=== PATIENT | female | born 1960 | race Caucasian/White ===

== ENCOUNTER 2020-09-01 19:55 | Inpatient (IN) | payer MEDICARE ==
[~2020-09-01] VITALS: Ht 154.9 cm; Wt 51.2 kg
--- NOTE | 2020-09-01 21:40 | NUR ---
Patient admitted via EMS from [place] [facility]. Alert and oriented x 4. Pleasant. Reports 7/10 pressure lower abdomin and no void since 1200 today. See assessment. Oriented to room and call light. Home meds all reviewed with patient. Patient scooted from gurney to bed. CUSTOMER RETENTION REPRESENTATIVE then assisted patient ambulatory to bathroom but patient unable to void. Rests back in bed. Juliana into see patient and new orders for indwelling reece received. Reviewed procedure with patient and 16 swiss reece 5 cc balloon inserted via sterile technique. 10mls inserted into balloon. Immediate return of 450mls clear yellow urine with 1 speck of blood.
[2020-09-01 21:45] VITALS: BP 132/77
--- NOTE | 2020-09-01 22:00 | NUR ---
Badder scan done due to patient unable to void and reads >736 mls.
[2020-09-01] MEDS ORDERED: SIMVASTATIN40 M1 PO (22:05)
[2020-09-01] MEDS ORDERED: INSULIN R (N100 U/ML SQ (22:05)
[2020-09-01] MEDS ORDERED: GLUCOPHAGE XR500 M2 PO (22:07)
[2020-09-01] MEDS ORDERED: LISINOPRIL10 MG PO (22:09)
[2020-09-01] MEDS ORDERED: AMITRIPTYLINE H50 M1 PO ×3 (22:11→22:14)
[2020-09-01] MEDS ORDERED: TUMS REGULAR S500 MG PO (22:16)
[2020-09-01] MEDS ORDERED: NATURAL IRON65 MG PO (22:19)
[2020-09-01] MEDS ORDERED: SYNTHROID0.15 MG PO (22:20)
[2020-09-01] MEDS ORDERED: AMBIEN10 MG PO (22:21)
[2020-09-01] MEDS ORDERED: HUMULIN R U-100 U/ML SQ (22:26)
[2020-09-01] MEDS ORDERED: ACEROLA C500 MG PO (22:27)
[2020-09-01] MEDS ORDERED: NORCO 325 MG-7.1 TA1 PO (22:30)
[2020-09-01 23:23] LABS: URINE APPEARANCE CLOUDY; URINE BILIRUBIN 1+ (NEGATIVE); URINE BLOOD NEGATIVE (NEGATIVE); URINE COLOR YELLOW; URINE GLUCOSE 50 mg/dL mg/dL (NEGATIVE); URINE KETONE NEGATIVE (NEGATIVE); URINE NITRATE NEGATIVE (NEGATIVE); URINE PROTEIN(semi-quant) TRACE mg/dL (NEGATIVE); URINE UROBILINOGEN NORMAL (NORMAL)
[2020-09-01 23:24] LABS: URINE LEUKOCYTE ESTERASE TRACE (NEGATIVE); URINE WBC 0-1 /hpf (0-3)
--- NOTE | 2020-09-02 02:00 | NUR ---
Patient awakened for vitals and 850mls urine emptied from Slater catheter. States she's been sleeping and abdominal pressure is gone. "Feel much better".
[2020-09-02 02:06] VITALS: BP 112/73
--- NOTE | 2020-09-02 05:31 | NUR ---
Patient rests on left side with eyes closed. Respirations with ease.
[2020-09-02 05:52] VITALS: BP 122/72
--- NOTE | 2020-09-02 07:15 | NUR ---
REPORT RECEIVED FROM LIANNA CHAO.
[2020-09-02 07:55] LABS: BASO # 0.04 (0.02-0.10); EOS % 6.4 % (1.0-5.0); HEMATOCRIT 35.6 % (37.0-47.0); HEMOGLOBIN 11.4 g/dL (12.5-16.0); LYMPH# 2.65 (1.50-4.00); MEAN CELL VOLUME 101 fl (78-100); MEAN CORPUSCULAR HEMOGLOBIN 32 pg (27-31); MEAN CORPUSCULAR HGB CONC 32 g/dL (33-37); MEAN PLATELET VOLUME 8.9 fl (7.4-10.4); MONO # 0.61 (0.20-0.80); NEU # 4.03 (1.40-6.50); PLATELET COUNT 291 K/mm3 (130-400); RED BLOOD COUNT 3.54 M/mm3 (4.10-5.30); RED CELL DISTRIBUTION WIDTH 12.3 % (11.5-14.5); WHITE BLOOD COUNT 7.9 K/mm3 (4.8-10.8)
--- NOTE | 2020-09-02 07:55 | NUR ---
SITTING UP IN BED. NS INFUSING TO INTACT SITE AT RT FOREARM AT 125ML/HR. ALSO HAS INT INTACT TO LT AC; FLUSHES APPROPRIATELY. REPORTS PAIN ACROSS LOW ABD AND ALSO TO RT LOW BACK, EXTENDING NEAR THE RT FLANK REGION. ABD DISTENDED- DOES NOT FEEL BLOATED. BOWEL SOUNDS ACTIVE X4 QUADS. MONTOYA CATH INTACT TO DD. TELE INTACT. CALL LIGHT IN REACH.
[2020-09-02 08:06] LABS: ALBUMIN 3.2 g/dL (3.5-5.0); POTASSIUM 4.9 mmol/L (3.5-5.1)
[2020-09-02 08:07] LABS: CALCIUM 7.8 mg/dL (8.3-10.5)
[2020-09-02 08:08] LABS: TOTAL PROTEIN 5.5 g/dL (6.4-8.3)
[2020-09-02 08:10] LABS: TOTAL BILIRUBIN 0.2 mg/dL (0.2-1.2)
--- NOTE | 2020-09-02 10:01 | NUR ---
VERBAL ORDER FROM KT MCNULTY TO DISCONTINUE TELEMETRY.
[2020-09-02 10:10] VITALS: BP 114/70
--- NOTE | 2020-09-02 11:51 | NUR ---
KT MCNULTY NOTIFIED OF FSBS 515. ORDERS TO GIVE INSULIN PER SLIDING SCALE. WILL RECHECK FSBS TWO HOURS AFTER EATING.
[2020-09-02 14:12] VITALS: BP 126/77
--- NOTE | 2020-09-02 15:13 | NUR ---
F/U FSBS 317. J.KACEY GUERRAN NOTIFIED. ORDERS TO GIVE INSULIN PER SLIDING SCALE X1 DOSE NOW.
--- NOTE | 2020-09-02 15:30 | NUR ---
TWINE REELING MACHINE OPERATOR REPORTS PATIENT PASSED TRACE AMOUNT BM AND REMNANTS OF DULCOLAX SUPPOSITORY.
[2020-09-02 18:14] VITALS: BP 122/77
--- NOTE | 2020-09-02 18:50 | NUR ---
REPORT PROVIDED TO ELIZABETH PALUMBO.
--- NOTE | 2020-09-02 19:17 | NUR ---
Report received from Cristina CHAO. Patient requesting pain medication at shift change. This nurse to room. Patient sitting in recliner. at chairside. This nurse introduces self, patient immediately states "I am hurting I have been hurting a long time." This nurse advises that I have her pain pills. Rates pain 10/10 to lower abdomen, radiating around to her back. [employer] 1 tab taken at this time. "burning and throbbing" Discussed with patient constipation and relation to narcotics. Offered and refused prune juice. Will received Miralax and Sennokot tonight. IVF infusing NS at 125 ML/HR. Site patent to RFA. Abdomen rounded, firm with bowel sounds hypoactive. Patient states abdomen is the same as always. Reports passing gas and had medium BM yesterday. No pedal edema. Reviewed medication list. When got to Morphine patient states "I feel like thats what I need now, it really hurts". Advised to try and see if [employer] works first. Agreeable to plan. Denies further questions, wants or needs at this time.
--- NOTE | 2020-09-02 19:50 | NUR ---
Rings call light and states pain still /. Morphine 4 MG given SIVP at this time. INT patent to RFA. Requests to have Alexandrea and Lisa at 2200.
[2020-09-02 22:25] VITALS: BP 129/77
--- NOTE | 2020-09-03 01:06 | NUR ---
Patient is resting quietly with eyes closed. No signs of pain or distress. New bag of IVF hung. NS to run at 125 ML/HR. Site patent to [facility]. Bed alarm on. Call light in reach.
[2020-09-03 01:46] VITALS: BP 119/75; BP 119/758
--- NOTE | 2020-09-03 01:49 | NUR ---
Rings call light and requests analgesic for pain 12/07, to lower abdomen and around to back. Morphine 4 MG given SIVP.
--- NOTE | 2020-09-03 05:10 | NUR ---
Rings call light and requests analgesic. Prefers the Morphine vs [place]. 4 MG given SIVP along with scheduled early AM PO medications. Rates pain 10/10 to lower abdomen, radiating around to her back. States she did get some rest. Has not had a BM. Reports passing gas. Denies further wants or needs.
[2020-09-03 05:49] VITALS: BP 137/83
--- NOTE | 2020-09-03 07:00 | NUR ---
Report received from DEEPALI Paz.
--- NOTE | 2020-09-03 07:12 | NUR ---
Report to Nubia CHAO.
--- NOTE | 2020-09-03 08:15 | NUR ---
Pt sleeping in bed when entering the room but arouses quickly. PT is A&Ox4. Pt denies pain at this time. IV does not show any signs of complications. No concerns at this time.
--- NOTE | 2020-09-03 09:40 | NUR ---
Pt requesting Morphine 4mg/ml for 8 out of 10 pain.
[2020-09-03 10:04] VITALS: BP 122/76
--- NOTE | 2020-09-03 11:25 | NUR ---
Pt requesting Morphine for 8 out of 10 pain, 1ml morphine given at 0947 and will not be able to be given again until 1147. Nurse notified pt about this and reeducated her about the effects mophine has on bowel movements. Pt reports no bowel movements today Laxmi August APRN notified and gave orders to do a fleet enema. Pt requests this be done after lunch.
[2020-09-03 14:39] LABS: BASO # 0.04 (0.02-0.10); EOS # 0.56 (0.04-0.40); HEMATOCRIT 38.8 % (37.0-47.0); HEMOGLOBIN 12.3 g/dL (12.5-16.0); LYMPH# 3.25 (1.50-4.00); MEAN CELL VOLUME 102 fl (78-100); MEAN CORPUSCULAR HEMOGLOBIN 32 pg (27-31); MEAN CORPUSCULAR HGB CONC 32 g/dL (33-37); MEAN PLATELET VOLUME 8.9 fl (7.4-10.4); MONO # 0.65 (0.20-0.80); NEU # 6.77 (1.40-6.50); PLATELET COUNT 326 K/mm3 (130-400); RED BLOOD COUNT 3.82 M/mm3 (4.10-5.30); RED CELL DISTRIBUTION WIDTH 12.3 % (11.5-14.5); WHITE BLOOD COUNT 11.3 K/mm3 (4.8-10.8)
[2020-09-03 14:46] VITALS: BP 119/75
[2020-09-03 14:58] LABS: ALBUMIN 3.7 g/dL (3.5-5.0)
[2020-09-03 14:59] LABS: POTASSIUM 5.1 mmol/L (3.5-5.1)
[2020-09-03 15:00] LABS: CALCIUM 8.6 mg/dL (8.3-10.5)
[2020-09-03 15:01] LABS: TOTAL PROTEIN 6.4 g/dL (6.4-8.3)
[2020-09-03 15:19] LABS: TOTAL BILIRUBIN 0.1 mg/dL (0.2-1.2)
--- NOTE | 2020-09-03 15:30 | NUR ---
Soap Cherry Enema ordered and completed with results. Will continue to monitor.
[2020-09-03 16:40] LABS: URINE APPEARANCE CLOUDY; URINE BILIRUBIN NEGATIVE (NEGATIVE); URINE BLOOD 250 ery/uL (NEGATIVE); URINE COLOR LT YELLOW; URINE KETONE NEGATIVE (NEGATIVE); URINE LEUKOCYTE ESTERASE 2+ (NEGATIVE); URINE NITRATE POSITIVE (NEGATIVE); URINE PROTEIN(semi-quant) 1+ mg/dL (NEGATIVE); URINE UROBILINOGEN NORMAL (NORMAL); URINE WBC >50 /hpf (0-3)
[2020-09-03 18:10] VITALS: BP 126/81
--- NOTE | 2020-09-03 20:00 | NUR ---
Report received from Nubia CHAO. Patient up in recliner. IVF infusing at 75 ML/HR. Site patent to RFA. A/O x4. Rates pain 3/10 to lower abdomen/back. Assessment completed. BS active. No edema. Denies wants or needs at this time.
--- NOTE | 2020-09-03 20:15 | NUR ---
Agreeable to go for a walk with 411 DIRECTORY ASSISTANCE OPERATOR. Ambulated about 50 feet, slow steady gait with 1 rest period in between. Tolerated well. Assisted to bed. Reece Cath removed, ballon intact. 200 ML output in reece cath. Accu-check 163. Snack provided per request, states she "didn't eat much supper".
--- NOTE | 2020-09-03 21:40 | NUR ---
Up to BR. Voids. No collection container in toilet but patient states she voided quite a bit and feels like she emptied her bladder. Agreeable to another walk. Ambualted in casiano with ASPHALT ENGINEER and walker to hallway sink and back. Tolerated well. States pain to lower abdomen is coming back. Rates 8/10. "burning to abdomen and "throbbing" to back area. Offered PO analgesic and patient declines, states she wants the Morphine. "Maybe tomorrow, I can get off of it.". I am not use to being in pain". Patient has been educated about the correlation between narcotic medications and constipation. Verbalizes understanding. Morphine 4 MG given SIVP. IVF continue at 75 ML/Hr.
[2020-09-03 22:00] VITALS: BP 135/77
--- NOTE | 2020-09-04 00:12 | NUR ---
Awakens and calls for analgesic for pain to abdomen and back 12/07. MSO4 4 MG given SIVP. Up to BR with SBA and walker.
[2020-09-04 02:21] VITALS: BP 152/86
--- NOTE | 2020-09-04 04:45 | NUR ---
Calls and requests Morphine for pain to abdomen and back. 4 MG SIVP given. Early AM medications taken at this time as well.
[2020-09-04 06:04] VITALS: BP 152/77
--- NOTE | 2020-09-04 07:30 | NUR ---
Report to Korina CHAO.
[2020-09-04] MEDS ORDERED: MS CONTIN 115 MG/TAB PO (08:31)
[2020-09-04] MEDS ORDERED: GLUCOPHAGE PO (08:32)
[2020-09-04] MEDS ORDERED: HUMULIN 70/30 KW3 ML SQ (08:38)
[2020-09-04 10:01] VITALS: BP 126/76
[2020-09-04 13:56] VITALS: BP 118/73
--- NOTE | 2020-09-04 17:10 | NUR ---
Prelim urine culture results given to Dr. Waite.
[2020-09-04 17:50] VITALS: BP 123/74
[2020-09-04 22:20] VITALS: BP 145/89
[2020-09-05 02:16] VITALS: BP 148/85
--- NOTE | 2020-09-05 02:30 | NUR ---
pt ambulated in hallway 150 ft and then sat on the toilet for about 10 minutes. Voided without difficulty. No stool.
--- NOTE | 2020-09-05 03:08 | NUR ---
PT APPEARS TO BE SLEEPING. AWAKENS EASILY. NO FURTHER BURNING SENSATION.
[2020-09-05 06:24] VITALS: BP 124/77
[2020-09-05 07:47] LABS: BASO # 0.03 (0.02-0.10); EOS # 0.08 (0.04-0.40); EOS % 2.3 % (1.0-5.0); HEMATOCRIT 33.4 % (37.0-47.0); HEMOGLOBIN 10.9 g/dL (12.5-16.0); LYMPH# 1.85 (1.50-4.00); MEAN CELL VOLUME 100 fl (78-100); MEAN CORPUSCULAR HEMOGLOBIN 33 pg (27-31); MEAN CORPUSCULAR HGB CONC 33 g/dL (33-37); MEAN PLATELET VOLUME 9.6 fl (7.4-10.4); MONO # 0.23 (0.20-0.80); NEU # 1.31 (1.40-6.50); PLATELET COUNT 298 K/mm3 (130-400); RED BLOOD COUNT 3.35 M/mm3 (4.10-5.30); RED CELL DISTRIBUTION WIDTH 12.2 % (11.5-14.5); WHITE BLOOD COUNT 3.5 K/mm3 (4.8-10.8)
--- NOTE | 2020-09-05 08:00 | NUR ---
PATIENT SITTING UP IN RECLINER. SHIFT ASSESSMENT COMPLETE. PATIENT ALERT AND ORIENTED X4. REPORTS HAVING PAIN 10/10 IN LOW ABD. REPORTS PAIN RADIATES AROUND TO THE LEFT SIDE OF LOW ABD. DESCRIBES PAIN A CRAMPING/PULLING PAIN WITH SPASMS. PATIENT'S ABD DISTENDED AND FIRM. PATIENT GUARDING. BOWEL SOUNDS AUDIBLE IN ALL QUADRANTS. PATIENT DENIES ANY SHORTNESS OF BREATH OR DIFFICULTIES BREATHING EXCEPT FOR WHEN PAIN IS REALLY BAD PATIENT HAS SHORTNESS OF BREATH. PATIENT HAD NO RESULTS FROM MAG CITRATE TAKEN LAST NIGHT. THIS NURSE DISCUSSED PLAN TO REALLY FOCUS ON GETTING BOWELS TO MOVE TODAY TO SEE IF PAIN IN ABD IS IMPROVED WITH BOWEL MOVEMENT AND DUE TO AMOUNT OF STOOL FOUND IN MOST RECENT XRAY DONE AFTER ENEMA THAT WAS ADMINISTERED. THIS NURSE DISCUSSED PLAN AND GOALS FOR PATIENT TODAY. PATIENT VERBALIZED UNDERSTANDING. NOTIFIED.
[2020-09-05 09:02] LABS: POTASSIUM 5.1 mmol/L (3.5-5.1); SODIUM 140 mmol/L (136-145)
[2020-09-05 09:03] LABS: CALCIUM 8.1 mg/dL (8.3-10.5)
[2020-09-05 09:05] LABS: GLUCOSE 71 mg/dL (65-105); TOTAL PROTEIN 5.3 g/dL (6.4-8.3)
[2020-09-05 09:06] LABS: CARBON DIOXIDE 23 mmol/L (22-29); TOTAL BILIRUBIN 0.3 mg/dL (0.2-1.2)
[2020-09-05 09:11] LABS: ALT/SGPT 1158 U/L (0-55)
[2020-09-05 09:15] LABS: AST-SGOT > 4202 U/L (5-34)
--- NOTE | 2020-09-05 09:15 | NUR ---
CALLED AND NOTIFIED OF PATIENT'S LAB RESULTS.
[2020-09-05 09:52] VITALS: BP 120/70
[2020-09-05 09:57] LABS: LIPASE 171 U/L (8-78)
--- NOTE | 2020-09-05 10:15 | NUR ---
FLEETS ENEMA GIVEN AT THIS TIME. PATIENT TOLERATED WELL. PATIENT LYING IN BED. WILL CALL WHEN FEELS URGE TO HAVE BOWEL MOVEMENT.
--- NOTE | 2020-09-05 11:00 | NUR ---
IN TO SEE PATIENT AT THIS TIME.
--- NOTE | 2020-09-05 11:37 | NUR ---
PATIENT BLADDER SCANNED PER ORDER. BLADDER SCANNED LAST VOID WAS AT [id number] BLADDER SCAN SHOWED 284 MLS IN BLADDER.
[2020-09-05 11:54] LABS: PARTIAL THROMBOPLASTIN TIME 20.6 SECONDS (21.0-32.0); PROTHROMBIN TIME 9.3 SECONDS (9.0-12.0)
--- NOTE | 2020-09-05 12:30 | NUR ---
PATIENT LYING IN BED WITH EYES CLOSED. THIS NURSE ASKS PATIENT IF PAIN WAS IMPROVED AFTER HAVING A SMALL AND MEDIUM BOWEL MOVEMENT. PATIENT REPORTS THAT PAIN DOES FEEL BETTER. RATES PAIN AT 3-4/10. POSTURE MORE RELAXED. PATIENT STATES FEELING LIKE THE PAIN MIGHT BE STARTING TO COME BACK AND STATES THAT WHEN WAS IN TO SEE PATIENT THIS MORNING THAT ORDER FOR MORPHINE PRN WOULD BE PUT IN. ASKED IF MORPHINE WAS IN FACT ORDERED. THIS NURSE INFORMED PATIENT THAT THERE WAS NO CURRENT PRN ORDER FOR IV MORPHINE BUT WILL FOLLOW UP WITH ABOUT IT.
[2020-09-05 13:44] VITALS: BP 119/72
--- NOTE | 2020-09-05 14:40 | NUR ---
THIS NURSE WAS IN ROOM TO ADMININSTER PRN PYRIDIUM. PATIENT REPORTS HAVING 10/10 PAIN IN LOW ABD. PATIENT REQUESTING SOMETHING MORE FOR PAIN. ASKING ABOUT IV MORPHINE. PATIENT NOTIFIED THAT THERE WERE NO CURRENT ORDERS AT THIS TIME FOR IV MORPHINE. PATIENT GETS FRANTIC. STATES "I HAVE TO HAVE SOMETHING FOR THE PAIN THIS IS JUST GETTING TOO BAD" THIS NURSE ENCOURAGES PATIENT TO TRY TO GET UP TO THE BATHROOM AND HAVE ANOTHER BOWEL MOVEMENT BECAUSE MORE STOOL NEEDS TO COME OUT. PATIENT STATES "THERE IS JUST ABSOLUTELY NO WAY I CAN HAVE A BOWEL MOVEMENT WITHOUT GETTING MORPHINE. I CAN NOT DO THAT WITH ALL THIS PAIN I AM HAVING. THERE IS ABSOLUTELY NO WAY. I HAVE TO HAVE SOMETHING I CAN'T HANDLE THIS ANYMORE" TOLD PATIENT THAT THIS NURSE WOULD SPEAK WITH DOCTOR ABOUT GETTING ORDER FOR IV MORPHINE.
--- NOTE | 2020-09-05 16:00 | NUR ---
ORDER OBTAINED FOR IV MORPHINE. THIS NURSE IN ROOM TO ADMINISTER MORPHINE. UPON ENTERING ROOM PATIENT HAS TEARS RUNNING DOWN FACE SITTING UP IN BED. PATIENT;S SITTING ON EDGE OF BED TALKING WITH PATIENT. PATIENT ASKED IF ORDER WAS A ONE TIME ORDER OR IF IT IS GOING TO BE AN NEEDED MEDICATION. TOLD PATIENT THAT IT WAS PRN EVERY 4 HOURS. PATIENT'S STATES TO THIS NURSE THAT IT IS ABSOLUTELY RIDICULOUS THAT PATIENT HAD TO WAIT FOR ORDER FOR IV MORPHINE AND THAT IT WAS SUPPOSED TO BE ORDERED 3 HOURS AGO. RAISES VOICE AT NURSE. STATING THAT IT'S RIDICULOUS SHE HAD TO WAIT. THIS NURSE EXPLAINED SITUATION TO AND APOLOGIZED THAT PATIENT WAS HAVING PAIN. PATIENT GIVEN 4 MG IV MORPHINE. WHEN ADMINISTERING MEDICATION PATIENT STATES TO NURSE "YOU KNOW MY STOMACH IS FEELING LIKE IT'S STARTING TO RUMBLE LIKE I MIGHT BE ABLE TO GET UP AND GO TRY TO HAVE A BOWEL MOVEMENT IN A LITTLE BIT" PATIENT INSTRUCTED TO CALL IF NEEDING TO GET UP TO BATHROOM.
[2020-09-05 17:29] VITALS: BP 137/83
--- NOTE | 2020-09-05 20:30 | NUR ---
Report received from Lisbeth CHAO. Patient sitting up in recliner. IVF infusing NS at 75 ML/HR. Site to [facility] patent. As nurse enters room patient states "this pain is hurting really bad, really bad" Rates 02/06 to lower abdomen. Discussed that she has her scheduled MS contin due, patient states "that doesn't help, I need my Morphine. (refers to IV Morphine) Wants to wait on PO ambien, elavil and Ms Contin until 10 PM. MSO4 4 MG given SIVP at this time. Assisted up to BR. Voids 650 ML of urine. Assisted to bed. Dulcolax Supp. administered at this time. PO Miralax taken in applejuice. K-pad to abdomen area. Patient states she is passing gas and has good bowel sounds. SCD's applied to BLE. Assessment completed. Bed alarm on. Call light in reach.
--- NOTE | 2020-09-05 22:00 | NUR ---
HS medications taken PO at this time. Reports pain now 5/10. Was up to BR again and voids 50 ML of yellow urine. No BM. Currently in bed talking on phone with no signs of distress. Patient was educated earlier on NPO status after Midnight for abdominal US tomorrow AM.
[2020-09-05 22:25] VITALS: BP 159/90
--- NOTE | 2020-09-06 00:25 | NUR ---
Patient NPO now for abdomen US in AM. Water and drinks removed from bedside table. Resting with eyes closed. No signs of pain or distress. IVF infusing NS at 75 ML/HR.
[2020-09-06 01:51] VITALS: BP 151/81
--- NOTE | 2020-09-06 01:56 | NUR ---
Calls for assist to BR. CIRO in to assist. Voids 700 ML of orange colored urine. Requests analgesic for low abdominal pain 02/06. Morphine 4 MG given SIVP. Remains NPO for AM US. Denies want or needs.
--- NOTE | 2020-09-06 05:52 | NUR ---
Awakened by PIT RECORDER for AM vital signs. Patient immediatly asks for her IV Morphine. Rates pain to lower abdomen 10/10 and states her back pain is "the worst it has ever been. Up to BR, voids. Clean catch UA taken to lab. Morphine 4 MG given SIVP. Early AM medications held due to NPO status for US sometime this AM.
[2020-09-06 05:56] VITALS: BP 138/73
[2020-09-06 07:43] LABS: BASO # 0.03 (0.02-0.10); EOS # 0.41 (0.04-0.40); EOS % 6.6 % (1.0-5.0); HEMOGLOBIN 10.1 g/dL (12.5-16.0); LYMPH# 2.83 (1.50-4.00); MEAN CELL VOLUME 103 fl (78-100); MEAN CORPUSCULAR HEMOGLOBIN 32 pg (27-31); MEAN CORPUSCULAR HGB CONC 32 g/dL (33-37); MEAN PLATELET VOLUME 9.3 fl (7.4-10.4); MONO # 0.36 (0.20-0.80); NEU # 2.56 (1.40-6.50); PLATELET COUNT 261 K/mm3 (130-400); RED BLOOD COUNT 3.12 M/mm3 (4.10-5.30); RED CELL DISTRIBUTION WIDTH 12.2 % (11.5-14.5); WHITE BLOOD COUNT 6.2 K/mm3 (4.8-10.8)
[2020-09-06 07:49] LABS: POTASSIUM 5.3 mmol/L (3.5-5.1)
[2020-09-06 07:51] LABS: CALCIUM 8.2 mg/dL (8.3-10.5)
[2020-09-06 07:52] LABS: TOTAL PROTEIN 5.2 g/dL (6.4-8.3)
[2020-09-06 07:54] LABS: TOTAL BILIRUBIN 0.2 mg/dL (0.2-1.2)
[2020-09-06 07:54] LABS: URINE APPEARANCE CLEAR; URINE COLOR YELLOW; URINE PROTEIN(semi-quant) NEGATIVE (NEGATIVE)
[2020-09-06 07:55] LABS: URINE BILIRUBIN NEGATIVE (NEGATIVE); URINE BLOOD NEGATIVE (NEGATIVE); URINE KETONE NEGATIVE (NEGATIVE); URINE LEUKOCYTE ESTERASE NEGATIVE (NEGATIVE); URINE NITRATE NEGATIVE (NEGATIVE); URINE UROBILINOGEN NORMAL (NORMAL)
--- NOTE | 2020-09-06 08:00 | NUR ---
PATIENT SITTING UP IN RECLINER. SHIFT ASSESSMENT COMPLETE. ASKED PATIENT HOW NIGHT WAS STATES"IT WASN'T TOO BAD I HAD SOME PAIN" PATIENT RATES PAIN AT 7/10. PATIENT DENIES ANY SHORTNESS OF BREATH OR DIFFICULTIES BREAHTING. PATIENT'S ABDOMEN MORE DISTENDED THIS MORNING. ABD REMAINS FIRM. PAITENT GUARDING. ABD VERY TENDER UPON PALPATION. BOWEL SOUNDS AUDIBLE IN ALL QUADRANTS. HYPOACTIVE. PATIENT REMIANS NPO FOR ABDOMINAL ULTRASOUND. PATIENT'S CALL LIGHT WITHIN REACH. CHAIR ALARM ON.
--- NOTE | 2020-09-06 09:16 | NUR ---
CALLED AND NOTIFIED OF PATIENT'S LAB RESULTS.
--- NOTE | 2020-09-06 10:00 | NUR ---
Marcello BRITO APRN IN ROOM TO SEE PATIENT.
[2020-09-06 10:11] VITALS: BP 128/75
--- NOTE | 2020-09-06 11:15 | NUR ---
Marcello BRITO FIRE PROTECTION SPECIALIST IN ROOM TO SEE PATIENT AND NOTIFY OF TRANSFER TO [facility].
--- NOTE | 2020-09-06 12:10 | NUR ---
HAVE NOT RECEIVED CALL FROM [facility] WITH PT ROOM NUMBER. CONTACTED [facility] ANDERSON CANTU HOUSEHOLD APPLIANCE ASSEMBLER TO ASK FOR UPDATE ON WHEN ROOM NUMBER WOULD BE AVAILABLE. PEPE IS GOING TO CALL BACK IN ABOUT 10 MINUTES WITH ROOM NUMBER.
--- NOTE | 2020-09-06 12:26 | NUR ---
PEPE GAS BLENDER CALLED AT THIS TIME PATIENT GOING TO ROOM 322 UNDER THE CARE OF . NUMBER FOR REPORT IS [phone].
--- NOTE | 2020-09-06 12:29 | NUR ---
EMS CALLED AT THIS TIME. SPOKE WITH [facility] MACHINE STITCHER.
[2020-09-06 12:35] VITALS: BP 115/81
--- NOTE | 2020-09-06 12:35 | NUR ---
REPORT CALLED TO JANIE NURSE TAKING OVER PATIENT CARE. DENIES ANY QUESTIONS AT THIS TIME.
--- NOTE | 2020-09-06 13:00 | NUR ---
PATIENT LEFT FACILITY VIA EMS AT THIS TIME. PERSONAL BELONGINGS AND DISCAHRGE PAPERWORK SENT WITH EMS.
[2020-09-06 18:26] LABS: HEPATITIS C ANTIBODY Negative (Negative)
== END 2020-09-06 13:00 | disposition short-term general hospital (02) | DRG 682 ==
LOC: MED/SURG 19:55
PROVIDERS: Family Medicine; Nurse Practitioner; ADMIT Physician Assistant
DX: N17.9 Acute kidney failure, unspecified (principal); K83.1 Obstruction of bile duct; E87.2 Acidosis; N39.0 Urinary tract infection, site not specified; D50.9 Iron deficiency anemia, unspecified; E11.65 Type 2 diabetes mellitus with hyperglycemia; I25.10 Atherosclerotic heart disease of native coronary artery without angina pectoris; I25.2 Old myocardial infarction; K59.00 Constipation, unspecified; R33.9 Retention of urine, unspecified; R74.01 Elevation of levels of liver transaminase levels; E78.5 Hyperlipidemia, unspecified; Z79.891 Long term (current) use of opiate analgesic; Z79.4 Long term (current) use of insulin; Z90.710 Acquired absence of both cervix and uterus; Z87.891 Personal history of nicotine dependence
CPT/HCPCS: J0696; J1815; J2270; J7030